=== PATIENT | male | born 2000 | race Asian ===

== ENCOUNTER 2022-05-05 11:15 | Emergency (ER) | payer OTHER ==
[~2022-05-05] VITALS: Ht 167.6 cm; Wt 61.2 kg
[~2022-05-05 11:15] MED LIST: GAS-X80 MG PO; ZOFRAN ODT4 MG PO
== END 2022-05-05 11:42 | disposition home or self-care (01) ==
LOC: ED 11:15
DX: N47.2 Paraphimosis (principal)
CPT/HCPCS: 99283